=== PATIENT | female | born 1970 | race Caucasian/White ===

== ENCOUNTER 2023-01-29 11:38 | Outpatient (OUT) | payer BC, SELFPAY ==
[2023-01-29 12:27] LABS: Basophils Percent Auto 0.3 % (0.2-2.0); Eosinophils Absolute Auto 0.1 10^3/uL (0.0-0.7); Eosinophils Percent Auto 2.1 % (0.9-7.0); Hematocrit 38.7 % (36.0-48.0); Hemoglobin 12.6 g/dL (12.0-16.0); Immature Granulocytes Abs Auto 0.03 10^3/uL (0.00-0.03); Immature Granulocytes Pct Auto 0.5 % (0.0-0.5); Lymphocytes Absolute Auto 2.5 10^3/uL (1.2-3.8); Lymphocytes Percent Auto 41.3 % (20.5-60.0); Mean Corpuscular HGB Conc 32.6 g/dL (29.9-35.2); Mean Corpuscular Volume 95.1 fL (81.0-99.0); Mean Platelet Volume 10.4 fL (9.5-13.5); Monocytes Absolute Auto 0.5 10^3/uL (0.3-0.8); Monocytes Percent Auto 7.4 % (1.7-12.0); Neutrophils Absolute Auto 2.9 10^3/uL (1.4-6.5); Neutrophils Percent Auto 48.4 % (43.0-75.0); Platelet Count 215 10^3/uL (150-450); Red Blood Count 4.07 10^6/uL (4.20-5.40); Red Cell Distribution Width 12.5 % (11.0-15.0); White Blood Count 6.1 10^3/uL (4.0-11.0)
[2023-01-29 12:40] LABS: Alanine Aminotransferase 37 U/L (14-59); Albumin Globulin Ratio 0.9; Albumin Level 3.7 g/dL (3.4-5.0); Alkaline Phosphatase 125 U/L (46-116); Anion Gap 10.8; Aspartate Amino Transferase 20 U/L (15-37); BUN Creatinine Ratio 27.3; Bilirubin Total 0.6 mg/dL (0.2-1.0); Calcium 9.1 mg/dL (8.5-10.1); Carbon Dioxide 29.6 mmol/L (21.0-32.0); Chloride 104 mmol/L (98-107); Estimated GFR (African America >60 (>=60); Estimated GFR (Non-African Ame >60 (>=60); Globulin 4.1 g/dL; Glucose 108 mg/dL (74-106); Potassium 4.4 mmol/L (3.5-5.1); Sodium 140 mmol/L (136-145); Thyroid Stimulating Hormone 4.987 uIU/mL (0.358-3.740); Total Protein 7.8 g/dL (6.4-8.2)
== END 2023-01-29 11:39 ==
LOC: LAB 11:44
PROVIDERS: PCP Family Medicine; Visit Provider Family Medicine
DX: R55 Syncope and collapse (principal); R42 Dizziness and giddiness
CPT/HCPCS: 36415; 80053; 84436; 84443; 85025

== ENCOUNTER 2023-02-09 09:59 | Outpatient (OUT) | payer BC, SELFPAY ==
--- NOTE | 2023-02-09 10:21 | CA_ITS ---
[facility] Test Date: 2023-03-04 Pat Name: Supriya King Department: Room: - Gender: Female Communications Project Manager: : [id number] Requested By: MYRON JUDGE Order Number: [id number] Reading MD: BRIA DIETZ Interpretive Statements Predominant rhythm is sinus w/ average rate of 65 bpm Tachycardia - max rate of 124 bpm - 1 episode of SVT w/ longest duration of 5 beats - longest duration of 1min 27sec w/ rate 103-110 bpm Bradycardia - min rate of 43 bpm - longest episode of 49min 34sec w/ rate of 46-52 bpm Ventricular ectopy - 560 total (<1%) - 519 PVC - 2 couplets - 35 trigeminy NSVT - 1 episode w/ duration of 4 beats Patient triggered events: 1 - associated w/ rate of 59 bpm IMpression: Predominant rhythm is sinus w/ average rate of 65 bpm Fastest rate of 124 bpm and slowest rate of 43 bpm 519 PVC, 2 couplets and 35 trigeminy No pauses of blocks Electronically Signed On 03-06-2023 15:02:49 EDT by BRIA DIETZ
== END 2023-02-09 10:00 ==
PROVIDERS: PCP Family Medicine; Visit Provider Family Medicine
DX: R55 Syncope and collapse (principal); I49.9 Cardiac arrhythmia, unspecified
CPT/HCPCS: 93242